=== PATIENT | female | born 1995 | race Caucasian/White ===

== ENCOUNTER 2017-10-13 10:37 | Emergency (ER) | payer OTHER ==
[2017-10-13 10:46] VITALS: RESP 18
[2017-10-13] MEDS ORDERED: NS 1,000 ML IV ONE (10:50)
[2017-10-13 10:55] LABS: % IMMATURE GRANULYOCYTES 0.5 % (0.0-1.1); ABSOLUTE IMMATURE GRANULOCYTES 0.06 10^3/uL (0.00-0.10); ADD DIFF? NO; ADD MORPH? NO; ADD SCAN? NO; ATYPICAL LYMPHOCYTE FLAG 10 (0-99); FRAGMENT RBC FLAG 0 (0-99); HEMATOCRIT 47.1 % (38.0-47.0); HEMOGLOBIN 16.5 g/dL (12.6-16.3); LEFT SHIFT FLG 0 (0-99); LIPEMIA HEMOLYSIS FLAG 90 (0-99); MEAN CELL VOLUME 88.4 fL (81.5-99.8); MEAN PLATELET VOLUME 8.9 fL (8.7-11.7); PLATELET CLUMPS FLAG 0 (0-99); PLATELET COUNT 353 10^3/uL (150-400); RED BLOOD CELL COUNT 5.33 10^6/uL (4.18-5.33); RED CELL DISTRIBUTION WIDTH 13.1 % (11.5-15.2)
[2017-10-13 11:06] LABS: ANION GAP 17 mEq/L (8-16); CARBON DIOXIDE 23 mEq/l (22-31); CHLORIDE 102 mEq/L (97-110); CREATININE 0.7 mg/dL (0.6-1.0); GLOMERULAR FILTRATION RATE > 60; GLUCOSE 148 mg/dL (70-100); POTASSIUM 3.5 mEq/L (3.5-5.2); SODIUM 142 mEq/L (134-144)
[2017-10-13] MEDS ORDERED: KETOROLAC 30 MG/1 ML SDV IVP ONE (11:19)
--- NOTE | 2017-10-13 11:29 | EDPHY ---
H & P Time Seen by Provider: 10/13/17 10:49 HPI/ROS: HPI Menstrual cramps. 22-year-old female by ambulance. She reports that she started feeling typical lower abdominal cramping suggestive of pre menstruation 2-3 days ago. She started bleeding this morning and reports that her lower abdominal menstrual cramps were more than intense than usual. She is new to the area and does not know anybody and did not think she could drive herself to the emergency department so she called for an ambulance. She denies any profuse or abnormal vaginal bleeding. She does not think she is . She is feeling better now on my evaluation. ROS: Constitutional: No fever, no chills. No weakness. Eyes: No discharge. No changes in vision. ENT: No sore throat. No nasal congestion or rhinorrhea. Respiratory: No cough. No shortness of breath. Cardiac: No chest pain, no palpitations. Gastrointestinal: As above, no vomiting, no diarrhea. Genitourinary: No hematuria. She reports having some burning with urination. No frequency. As above. Musculoskeletal: No back pain. No neck pain. No myalgias or arthralgias. Skin: No rashes. Neurological: No headache. No focal weakness or altered sensation. Past medical history: She denies any significant past medical history. Social history: Nonsmoker. Here by herself. As above. Denies alcohol. Physical Exam: General Appearance: Alert, no distress. This patient is responding to questions appropriately and in full sentences. This patient appears well- hydrated and well-nourished. Eyes: Pupils equal and round no pallor or injection. No lid edema, erythema or injection. Respiratory: There are no retractions, lungs are clear to auscultation with good air movement bilaterally. Cardiovascular: Regular rate and rhythm. No murmur. Gastrointestinal: Abdomen is soft with vague and mild lower abdominal tenderness on palpation, no masses, bowel sounds normal. No focal tenderness at McBurney's point. No Moore sign. Neurological: Motor sensory function is grossly intact. Cranial nerves are normal. Gait is normal. Skin: Warm and dry, no rashes. Musculoskeletal: Neck is supple and nontender. Extremities are symmetrical. All joints range without pain or impingement. Psychiatric: No agitation. No depression. Database: EKG: Imaging: Procedures: Emergency department course: Vital signs reviewed and are normal. Serum is negative. Her presentation is not consistent with acute surgical problem such as appendicitis. Ovarian torsion is unlikely. Creatinine normal. No contraindications to NSAIDs. She was given 30 mg of IV Toradol. 11:45 a.m., patient re-evaluated. Repeat abdominal exam she is soft, nontender nondistended. She denies any significant pain after IV Toradol. She feels comfortable going home at this time. Plan will be to treat her with ibuprofen starting tonight. Her urinalysis demonstrated red cells from her menstruation but also white cells. She has been symptomatic for UTI. She will be prescribed Keflex for treatment of urinary tract infection. Follow-up and return to emergency department precautions were discussed with her. She feels comfortable going home. All of her questions were answered. She was discharged in good condition. Differential Diagnosis: The differential diagnosis on this patient includes but is not limited to dysmenorrhea, menstrual cramping, urinary tract infection. Ectopic , appendicitis, ovarian torsion unlikely. This represents a partial list of diagnoses considered. These considerations are based on history, physical exam , past history, reassessment and diagnostic testing. Smoking Status: Never smoked Constitutional: Initial Vital Signs Temperature (C) 36.3 C 10/13/17 10:44 Heart Rate 72 10/13/17 10:44 Respiratory Rate 18 10/13/17 10:44 Blood Pressure 112/74 10/13/17 10:44 O2 Sat (%) 98 10/13/17 10:44 O2 Delivery Mode Room Air Allergies/Adverse Reactions: No Known Allergies Allergy (Unverified 10/13/17 10:46) Home Medications: Medication Instructions Recorded Cephalexin [Keflex (*)] 500 mg PO Q6 7 Days cap 10/13/17 Medical Decision Making - Data Points Laboratory Results: Laboratory Results 10/13/17 10:45 10/13/17 10:45 10/13/17 10/13/17 10/13/17 11:39 10:45 10:45 WBC RBC Hgb Hct MCV MCH MCHC RDW Plt Count MPV Neut % (Auto) Lymph % (Auto) [place] % (Auto) Eos % (Auto) Baso % (Auto) Nucleat RBC Rel Count Absolute Neuts (auto) Absolute Lymphs (auto) Absolute Monos (auto) Absolute Eos (auto) Absolute Basos (auto) Absolute Nucleated RBC Immature Gran % Immature Gran # Sodium 142 mEq/L mEq/L (134-144) Potassium 3.5 mEq/L mEq/L (3.5-5.2) Chloride 102 mEq/L mEq/L (97-110) Carbon Dioxide 23 mEq/l mEq/l (22-31) Anion Gap 17 mEq/L H mEq/L (8-16) BUN 12 mg/dL mg/dL (7-23) Creatinine 0.7 mg/dL mg/dL (0.6-1.0) Estimated GFR > 60 Glucose 148 mg/dL H mg/dL (70-100) Calcium 10.0 mg/dL mg/dL (8.5-10.4) Beta HCG, Qual NEGATIVE Urine Color RED Urine Appearance TURBID Urine pH 6.0 (5.0-7.5) Ur Specific [place] 1.031 H (1.002-1.030) Urine Protein 2+ H (NEGATIVE) Urine Ketones TRACE H (NEGATIVE) Urine Blood 3+ H (NEGATIVE) Urine Nitrate NEGATIVE (NEGATIVE) Urine Bilirubin NEGATIVE (NEGATIVE) Urine Urobilinogen NEGATIVE EU EU (0.2-1.0) Ur Leukocyte Esterase NEGATIVE (NEGATIVE) Urine RBC 50-182 /hpf H /hpf (0-3) Urine WBC 50-182 /hpf H /hpf (0-3) Ur Epithelial Cells 2+ /lpf H /lpf (NONE-1+) Urine Bacteria 4+ /hpf H /hpf (NONE SEEN) Urine Mucus 3+ /lpf H /lpf (NONE-1+) Urine Glucose 1+ H (NEGATIVE) 10/13/17 10:45 WBC 11.76 10^3/uL H 10^3/uL (3.80-9.50) RBC 5.33 10^6/uL 10^6/uL (4.18-5.33) Hgb 16.5 g/dL H g/dL (12.6-16.3) Hct 47.1 % H % (38.0-47.0) MCV 88.4 fL fL (81.5-99.8) MCH 31.0 pg pg (27.9-34.1) MCHC 35.0 g/dL g/dL (32.4-36.7) RDW 13.1 % % (11.5-15.2) Plt Count 353 10^3/uL 10^3/uL (150-400) MPV 8.9 fL fL (8.7-11.7) Neut % (Auto) 70.6 % % (39.3-74.2) Lymph % (Auto) 22.2 % % (15.0-45.0) [place] % (Auto) 5.1 % % (4.5-13.0) Eos % (Auto) 1.0 % % (0.6-7.6) Baso % (Auto) 0.6 % % (0.3-1.7) Nucleat RBC Rel Count 0.0 % % (0.0-0.2) Absolute Neuts (auto) 8.30 10^3/uL H 10^3/uL (1.70-6.50) Absolute Lymphs (auto) 2.61 10^3/uL 10^3/uL (1.00-3.00) Absolute Monos (auto) 0.60 10^3/uL 10^3/uL (0.30-0.80) Absolute Eos (auto) 0.12 10^3/uL 10^3/uL (0.03-0.40) Absolute Basos (auto) 0.07 10^3/uL 10^3/uL (0.02-0.10) Absolute Nucleated RBC 0.00 10^3/uL 10^3/uL (0-0.01) Immature Gran % 0.5 % % (0.0-1.1) Immature Gran # 0.06 10^3/uL 10^3/uL (0.00-0.10) Sodium Potassium Chloride Carbon Dioxide Anion Gap BUN Creatinine Estimated GFR Glucose Calcium Beta HCG, Qual Urine Color Urine Appearance Urine pH Ur Specific [place] Urine Protein Urine Ketones Urine Blood Urine Nitrate Urine Bilirubin Urine Urobilinogen Ur Leukocyte Esterase Urine RBC Urine WBC Ur Epithelial Cells Urine Bacteria Urine Mucus Urine Glucose Medications Given: Discontinued Medications Sodium Chloride (Ns) 1,000 mls @ 0 mls/hr IV EDNOW ONE; Wide Open PRN Reason: Protocol Stop: 10/13/17 10:51 Last Admin: 10/13/17 11:29 Dose: 1,000 mls Ketorolac Tromethamine (Toradol) 30 mg IVP ONCE ONE Stop: 10/13/17 11:20 Last Admin: 10/13/17 11:42 Dose: 30 mg Departure - Departure Disposition: Home, Routine, Self-Care Clinical Impression: Severe menstrual cramps, Urinary tract infection Condition: Good Instructions: Dysmenorrhea (ED), Urinary Tract Infection in Women (ED) Additional Instructions: Read and follow provided instructions. Follow-up with OBGYN, Dr. Apoorva Gambino, early next week for re-evaluation and establishment of a primary care physician relationship. Call her office for appointment time. You can start taking ibuprofen tonight after 10:00 p.m.. Ibuprofen dosin mg every 6 hours with meals for the next 3 days only. Take only as needed for pain. Take antibiotic as prescribed through entire course of treatment as discussed. Return to the emergency department for worsening pain, fever, vomiting or other serious concerns. Referrals: Apoorva Gambino MD [Medical Doctor] - As per Instructions Prescriptions: Cephalexin [Keflex (*)] 500 mg PO Q6 7 Days cap
[2017-10-13 11:51] LABS: COLOR RED; LEUKOCYTE ESTERASE,URINE NEGATIVE (NEGATIVE); NITRITE,URINE NEGATIVE (NEGATIVE)
[2017-10-13 11:59] LABS: BACTERIA 4+ /hpf (NONE SEEN); MUCUS 3+ /lpf (NONE-1+); RBC,URINE 50-182 /hpf (0-3); WBC,URINE 50-182 /hpf (0-3)
[2017-10-13 13:04] VITALS: BP 105/72; PULSE 67; TEMP 98.9; O2SAT 99
== END 2017-10-13 13:04 | disposition home or self-care (01) ==
DX: N94.6 Dysmenorrhea, unspecified (principal); N39.0 Urinary tract infection, site not specified; B96.89 Other specified bacterial agents as the cause of diseases classified elsewhere; E86.9 Volume depletion, unspecified
CPT/HCPCS: 96374; J1885

== ENCOUNTER 2018-03-17 11:56 | Emergency (ER) | payer OTHER ==
[2018-03-17 12:00] VITALS: BP 109/58
--- NOTE | 2018-03-17 12:52 | EDPHY ---
HPI/HX/ROS/PE/MDM Narrative: CHIEF COMPLAINT: Right wrist pain HPI: The patient is a 23 y/o female complaining of right wrist pain secondary to a fall one week ago. She was standing on garbage crushing it and then falling forward onto her outstretched right wrist. Pain was initially mild, but has worsened over the last couple days. Her pain is primarily located along the volar aspect of her wrist and is aggravated by movement of her wrist. She tried using a brace at home, but this seemed to worsen the pain. She denies weakness, paresthesias, or other injuries. She is normally healthy. REVIEW OF SYSTEMS: Aside from elements discussed in the HPI, a comprehensive 10-point review of systems was reviewed and is negative. PMH: Denies SOCIAL HISTORY: Employed. PHYSICAL EXAM: General:Patient is alert, in no acute distress. ENT:Eyes are normal to inspection. ENT inspection normal. Neck: Normal inspection. Full range of motion. Respiratory:No respiratory distress. Cardiovascular:Strong peripheral pulses. Normal cap refill. Skin: Normal color. No rash. Warm and dry. Extremities: Right wrist: tenderness to volar aspect of distal radius, no snuffbox tenderness. Normal appearance. Full range of motion. Neuro: Oriented x3. Normal motor function. Normal sensory function. ED Course: This is a healthy 23 y/o female complaining of gradually worsening right wrist pain secondary to a fall onto her hand 1 week ago. She has mild tenderness along the volar aspect of her distal right radius without snuffbox tenderness. She is neurovascularly intact. A right wrist x-ray is negative for fracture. Patient will be discharged in a volar velcro splint with instructions to use ibuprofen for wrist sprain and follow up with ortho for unimproved symptoms over the next week. Return precautions discussed. - Data Points Imaging Results: Imaging Impressions Wrist X-Ray 03/17/18 12:01 Impression: There is no acute or subacute osseous abnormality. If there is a high clinical concern regarding an occult fracture, conservative management and short-term repeat radiographic follow-up in 7-14 days could be considered. Imaging: I viewed and interpreted images myself General Time Seen by Provider: 03/17/18 12:06 Initial Vital Signs: Initial Vital Signs Temperature (C) 36.8 C 03/17/18 11:57 Heart Rate 62 03/17/18 11:57 Respiratory Rate 16 03/17/18 11:57 Blood Pressure 109/58 L 03/17/18 11:57 O2 Sat (%) 96 03/17/18 11:57 O2 Delivery Mode Room Air Allergies/Adverse Reactions: No Known Allergies Allergy (Verified 03/17/18 11:57) Home Medications: Medication Instructions Recorded NK [No Known Home Meds] 03/17/18 Departure - Departure Disposition: Home, Routine, Self-Care Clinical Impression: Sprain of wrist, right Qualifiers: Encounter type: initial encounter Qualified Code(s): S63.501A - Unspecified sprain of right wrist, initial encounter Condition: Good Instructions: Wrist Sprain (ED) Additional Instructions: 1. Wear splint for comfort over the next several days. Apply ice to sore areas intermittently if helpful for pain. 2. Take 600mg ibuprofen every 8 hours for pain and inflammation consistently for the next few days. 3. Follow up with orthopedist for unimproved symptoms over the next week. 4. Return to the ED for worsening of condition. Referrals: Cecilia Gamble MD [Medical Doctor] - As per Instructions Report Scribed for: [place] Report Scribed by: Nicki Fair Date of Report: 03/17/18 Time of Report: 12:52 Physician Review and Approval Statement: Portions of this note were transcribed by an ED scribe. I personally performed the history, physical exam, and medical decision making; and confirm the accuracy of the information in the transcribed note.
== END 2018-03-17 13:04 | disposition home or self-care (01) ==
DX: S63.501A Unspecified sprain of right wrist, initial encounter (principal); W19.XXXA Unspecified fall, initial encounter
CPT/HCPCS: L3807

== ENCOUNTER 2018-12-11 19:10 | Emergency (ER) | payer MEDICAID, OTHER ==
--- NOTE | 2018-12-11 20:09 | EDPHY ---
HPI/HX/ROS/PE/MDM Narrative: CHIEF COMPLAINT: Back pain HISTORY OF PRESENT ILLNESS: This patient is a 23 year old female complaining of lower back pain. A few months ago, in August she coughed and had immediate right-sided lower back pain. About one week after this, she bent to pick something up and had a similar wrenching pain. The discomfort persisted and radiated down her right leg. This resolved for a little while, but now symptoms have returned. She is concerned for a disc injury. She has tried ibuprofen and CBD oil for relief. She has not had any followup yet. She endorses some numbness and paresthesias in her foot and calf. She has tried stretches recommended for sciatica relief, but these cause considerable discomfort. Denies any incontinence of bowel or bladder, but does endorse history of frequent UTIs and "overactive bladder". Denies any fever. No chills, chest pain, shortness of breath, palpitations, vomiting, diarrhea, headache, lightheadedness. REVIEW OF SYSTEMS: A comprehensive 10 system review of systems is otherwise negative aside from elements mentioned in the history of present illness and medical decision making. PAST MEDICAL HISTORY: Frequent UTIs. SOCIAL HISTORY: Nonsmoker. No history of IV drug use. She does use Ketamine recreationally, by sniffing. VITAL SIGNS: Reviewed by me GENERAL: Well-developed, well-nourished, sitting but sideways in the bed. Reports that if she sits on her right buttock it causes increased discomfort. HEENT: Atraumatic. Eyes: No icterus, no injection. Mouth: moist mucous membranes. No erythema or lesions. Neck: supple with no adenopathy. LUNGS: Clear to auscultation bilaterally, no wheezes, rhonchi or rales. CARDIAC: Regular rate and rhythm, no rubs, murmurs or gallops. ABDOMEN: Soft, nontender, nondistended, bowel sounds normal. BACK: Discomfort lateral to L5-S1 on the right. No midline tenderness to palpation. No erythema noted. No rash. EXTREMITIES: Straight leg raise test causes pain radiating down right lateral thigh to the knee. Motor strength 5/5 throughout all major muscle groups. Extensor hallucis longus normal strength. No sensory deficits to light touch. Brisk reflexes patellar and ankle jerk bilaterally. Good reflexes. Increased pain with straight leg raise. No trauma. No edema. Range of motion is normal throughout. NEURO: Alert and oriented, grossly nonfocal. SKIN: Warm and dry, no rash. PSYCHIATRIC: Normal mentation, no agitation. Portions of this note were transcribed by a medical chemist. I personally performed a history, physical exam, medical decision making, and confirmed accuracy of information the transcribed note. ED Course: 23 year old female presents with several month history of lumbar back pain with right-sided radiculopathy. On exam, she has pain lateral to L5-S1 on the right, radiating down the right lateral thigh to the knee. No sensory or motor deficits , good reflexes. Do not believe the patient needs a emergent MRI at this time. No evidence for acute diskitis, cauda equina, epidural abscess. Plan to administer 15mg IM Toradol for pain relief, along with PO gabapentin, Flexeril, and Tylenol. Lidocaine patch placed. Plan to discharge patient home in good condition with referral to neurosurgeon contract negotiation specialist. Follow up and return precautions discussed. Medications for symptom relief discussed. The patient is comfortable with this plan. MDM: After history was obtained and physical exam performed, the differential for back pain was considered including but not limited to muscular pain, herniated disc, cauda equina, diskitis, epidural abscess, spine fracture, intra-abdominal causes, and urinary tract infection. - Data Points Medications Given: Discontinued Medications Acetaminophen (Tylenol) 1,000 mg PO EDNOW ONE Stop: 12/11/18 20:31 Last Admin: 12/11/18 20:49 Dose: 1,000 mg Cyclobenzaprine HCl (Flexeril) 10 mg PO EDNOW ONE Stop: 12/11/18 20:31 Last Admin: 12/11/18 20:50 Dose: 10 mg Cyclobenzaprine HCl (Flexeril 10 Mg Prepack#3) 1 btl TAKEHOME EDNOW ONE Stop: 12/11/18 20:44 Last Admin: 12/11/18 21:03 Dose: 1 btl Gabapentin (Neurontin) 600 mg PO EDNOW ONE Stop: 12/11/18 20:31 Last Admin: 12/11/18 20:50 Dose: 600 mg Ketorolac Tromethamine (Toradol) 15 mg IM EDNOW ONE Stop: 12/11/18 20:31 Last Admin: 12/11/18 20:54 Dose: 15 mg Miscellaneous Medication (Icy Hot Lidocaine/Menthol 4%/1% Patch) 1 patch TD EDNOW ONE Stop: 12/11/18 20:31 Last Admin: 12/11/18 20:50 Dose: 1 patch General Time Seen by Provider: 12/11/18 19:26 Initial Vital Signs: Initial Vital Signs Temperature (C) 36.9 C 12/11/18 19:12 Heart Rate 93 12/11/18 19:12 Respiratory Rate 18 12/11/18 19:12 Blood Pressure 138/81 H 12/11/18 19:12 O2 Sat (%) 95 12/11/18 19:12 O2 Delivery Mode Room Air Allergies/Adverse Reactions: milk Allergy (Verified 12/11/18 19:16) Home Medications: Medication Instructions Recorded Cyclobenzaprine [Flexeril 10 MG 10 mg PO TID PRN #20 tab 12/11/18 (RX)] methylPREDNISolone [Medrol Dose 4 mg PO DAILY #1 each 12/11/18 Jay] Departure - Departure Disposition: Home, Routine, Self-Care Clinical Impression: Lumbar radiculopathy, right Condition: Good Instructions: Cyclobenzaprine (By mouth), Gabapentin (By mouth), Ketorolac (By injection), Lidocaine Patch (On the skin), Lumbar Radiculopathy (ED) Additional Instructions: Take ibuprofen or Aleve as directed below. I recommend Ibuprofen (Motrin, Advil) or Naproxen Sodium (Aleve) for pain and anti-inflammatory effects. You may take either one, but do not take both. Your dose is: Ibuprofen 600 mg every 6-8 hours with food. OR Naproxen Sodium (Aleve) 220 mg every 12 hours. I recommend Ibuprofen (Motrin, Advil) or Naproxen Sodium (Aleve) for pain and anti-inflammatory effects. Take Flexeril as prescribed. This is a muscle relaxant. It may make you sleepy. Use lidocaine patches as directed. Take Medrol Dosepak as prescribed. This is a steroid anti-inflammatory. Follow up with physical therapy and with neurosurgery for further evaluation of your symptoms. We have provided a referral to local spine specialists and our neurosurgeon contract negotiation specialist. Please follow up in the next week. Return to the emergency department for severe pain, fever, numbness, difficulty walking, change in location or nature of pain, incontinence of bladder or bowels , or other concerns. Referrals: [facility],. [Clinic] - As per Instructions Chas Pabon MD [Medical Doctor] - As per Instructions Prescriptions: Cyclobenzaprine [Flexeril 10 MG (RX)] 10 mg PO TID PRN #20 tab PRN Reason: Muscle Spasms methylPREDNISolone [Medrol Dose Jay] 4 mg PO DAILY #1 each Report Scribed for: Bobbi Kwong Report Scribed by: Valarie Garcia Date of Report: 12/11/18 Time of Report: 20:37
[2018-12-11] MEDS ORDERED: ACETAMINOPHEN 500 MG TAB PO ONE (20:30)
[2018-12-11] MEDS ORDERED: LIDOCAINE 4%/MENTHOL 1% PATCH TD ONE (20:30)
[2018-12-11] MEDS ORDERED: GABAPENTIN 300 MG CAP PO ONE (20:30)
[2018-12-11] MEDS ORDERED: CYCLOBENZAPRINE 10 MG TAB PO ONE (20:30)
[2018-12-11] MEDS ORDERED: KETOROLAC 15 MG/1 ML SDV IM ONE (20:30)
[2018-12-11] MEDS ORDERED: CYCLOBENZAPRINE 10MG PREPACK#3 BTL TAKEHOME ONE (20:43)
[2018-12-11] MEDS ORDERED: PATCH REMOVAL 1 EA PATCH TD SCH (21:00)
[2018-12-11 21:08] VITALS: BP 124/83
== END 2018-12-11 21:06 | disposition home or self-care (01) ==
DX: M54.16 Radiculopathy, lumbar region (principal)
CPT/HCPCS: J1885